=== PATIENT | female | born 1965 | race Two or more races ===

== ENCOUNTER 2017-01-07 06:37 | Emergency (ER) | payer SELFPAY ==
[~2017-01-07] VITALS: Ht 162.6 cm; Wt 93.5 kg
[2017-01-07 06:40] VITALS: Ht 162.6 cm; Wt 93.5 kg
--- NOTE | 2017-01-07 07:28 | ERD ---
ER Documentation Chief Complaint Date/Time DATE: 01/07/17 TIME: 07:23 Chief Complaint COUGH X 3 WEEKS, WORSE LAST NIGHT HPI 50-year-old female complaining of cough 3 weeks. Cough is getting worse, it is nonproductive, she is unable to sleep at night because of cough. She also has itchy watery eyes. Patient has 40+ year of smoking history, has recently quit smoking. She is feeling short of breath because of cough. Denies fever. Denies posttussive vomiting. Denies history of asthma. ROS All systems reviewed and are negative except as per history of present illness. Medications Home Meds Active Scripts Sodium Chloride (Saline Nasal Mist) 126 Ml Mist, 2 SPRAY NASAL Q2H Y for NASAL CONGESTION, #1 BOTTLE Prov:JESUS MANUEL MEJIA. POWER BALL[employer] MACHINE OPERATOR 01/07/17 Guaifenesin-Codeine Phosphate* (Guaifenesin* AC Cough Syrup) 473 Ml Liquid, 10 ML PO Q6 Y for COUGH, #120 ML Prov:JESUS MANUEL MEJIA. POWER BALL[employer] MACHINE OPERATOR 01/07/17 Fluticasone Propionate (Flonase Allergy Relief) 9.9 Ml [place].susp, 1 SPRAY NASAL DAILY, #1 BOTTLE TO EACH NOSTRIL Prov:JESUS MANUEL MEJIA. POWER BALL[employer] MACHINE OPERATOR 01/07/17 Allergies Allergies: Coded Allergies: No Known Allergy (Unverified , 01/07/17) PMhx/Soc Medical and Surgical Hx: pt denies Medical Hx History of Surgery: Yes (API) Anesthesia Reaction: No Hx Neurological Disorder: No Hx Respiratory Disorders: No Hx Cardiac Disorders: No Hx Psychiatric Problems: No Hx Miscellaneous Medical Probl: No Hx Alcohol Use: No Hx Substance Use: No Hx Tobacco Use: Yes Smoking Status: Former smoker Physical Exam Vitals Vital Signs Date Time Temp Pulse Resp B/P Pulse Ox O2 Delivery O2 Flow Rate FiO2 01/07/17 06:40 98.4 78 18 137/67 99 Physical Exam General impression: Well-developed, well-nourished. Alert, oriented, in no acute distress Head: Normocephalic, atraumatic. Eyes: PERRL, EOM normal. Conjunctiva not injected. ENT: Nasal mucosa swollen. Oral mucosa and oropharynx are normal. Neck: Supple, nontender. No lymphadenopathy. No nuchal rigidity. Respiration: Normal respiratory effort. Lungs clear to auscultate bilaterally. Slight coarse lung sounds noted in the lower lobes. Cardiovascular: Regular rate and rhythm. No murmurs or extra heart sounds. Neuro: Mental status normal, speech normal. [employer] grossly intact. Skin: Normal turgor. No rash or lesions. Psych: Normal mood and affect. Results 24 hrs PROCEDURE: XR Chest. CLINICAL INDICATION: cough x 3 wk TECHNIQUE: Portable single view of the chest COMPARISON: None. FINDINGS: The cardiomediastinal silhouette appears within normal limits. The lungs are clear and no pleural effusion or significant edema is seen. No bony abnormality is seen. IMPRESSION: No definite acute pulmonary disease. RPTAT: [facility] Physician [place] Date Time Electronically viewed and signed by Nohelia Newberry Physician on 01/07/2017 07 :47 LE/ CC: JESUS MANUEL MEJIA. POWER BALL[employer] MACHINE OPERATOR Procedures/MDM Chest x-ray was obtained to rule out pneumonia. X-ray is negative. Patient is cough is likely due to allergic rhinitis. Patient appears well, stable for discharge and outpatient management. Medical decision making shared with patient and family. Education provided to patient and family. Patient and family expressed understanding of the plan. Medications on discharge: Saline nasal spray, Flonase, guaifenesin with codeine. Follow-up: Primary care provider in 2-3 days or return to ED if worse. JESUS MANUEL MEJIA NP Jan 07, 2017 07:28
[2017-01-07] MEDS ORDERED: SODI126M NASAL (07:30)
[2017-01-07] MEDS ORDERED: FLUT9.9S NASAL (07:30)
[2017-01-07] MEDS ORDERED: GUAI473L22 PO (07:30)
--- NOTE | 2017-01-07 07:47 | RADRPT ---
PROCEDURE: XR Chest. CLINICAL INDICATION: cough x 3 wk TECHNIQUE: Portable single view of the chest COMPARISON: None. FINDINGS: The cardiomediastinal silhouette appears within normal limits. The lungs are clear and no pleural e ffusion or significant edema is seen. No bony abnormality is seen. IMPRESSION: No definite acute pulmonary disease. RPTAT: [facility] Nohelia Newberry Physician Date Time Electronically viewed and signed by Nohelia Newberry, Physician on 01/07/2017 07:47 LE/
[2017-01-07 08:02] VITALS: BP 131/70; PULSE 75; RESP 18; TEMP 98.5
== END 2017-01-07 08:03 | disposition home or self-care (01) ==
LOC: FTE 06:37
DX: R05 Cough (principal); H57.8 Other specified disorders of eye and adnexa; R06.02 Shortness of breath; Z87.891 Personal history of nicotine dependence
CPT/HCPCS: 71010